=== PATIENT | female | born 1970 | race Caucasian/White ===

== ENCOUNTER → 2017-06-05 | Outpatient (CLI) | payer MEDICAID ==
[2004-09-14 14:22] VITALS: PULSE 108; TEMP 98.7
== END ==
LOC: MC.RAD 08:47
DX: Z12.31 Encounter for screening mammogram for malignant neoplasm of breast (principal); N64.89 Other specified disorders of breast

== ENCOUNTER → 2017-06-08 | Outpatient (CLI) | payer MEDICAID ==
[2004-09-14 14:22] VITALS: PULSE 108; TEMP 98.7
== END ==
LOC: MC.RAD 08:55
DX: N60.02 Solitary cyst of left breast (principal); N64.89 Other specified disorders of breast

== ENCOUNTER → 2018-08-26 | Outpatient (CLI) | payer OTHER ==
[2004-09-14 14:22] VITALS: PULSE 108; TEMP 98.7
== END ==
LOC: MC.RAD 08:19
DX: Z12.31 Encounter for screening mammogram for malignant neoplasm of breast (principal)

== ENCOUNTER → 2020-01-06 | Outpatient (CLI) | payer OTHER ==
[2004-09-14 14:22] VITALS: PULSE 108; TEMP 98.7
== END ==
LOC: MC.RAD 15:41
DX: Z12.31 Encounter for screening mammogram for malignant neoplasm of breast (principal)